=== PATIENT | male | born 1945 | race Caucasian/White ===

== ENCOUNTER → 2016-11-03 | Outpatient (CLI) | payer MEDICARE ==
--- NOTE | 2016-11-03 12:29 | ECHOS ---
DATE OF SERVICE: 11/03/16. AGE: 70Y SEX: M HT: 69" WT: 225lbs. Protocol Fer: Others: X Stage: II Dur. of Exercise: 5:18 *Heart Rate Blood Pressure *Rest: 68 Rest: 156/96 * *Max. Achieved: 157 Maximum BP: 166/101 85% PMHR: 127 100% PMHR: 149 *METS: 2.6 INDICATIONS: Abnormal EKG. MEDICATIONS: REFERRING PHYSICIAN: Dr. Alejandro. STRESS DATA: 68, pressure is 156/96 minutes millimeters mercury. Baseline EKG showed sinus mechanism with nonspecific changes. The patient exercised on the treadmill according to Fer protocol for a total of 5 minutes and 18 seconds achieved ( ) Max heart rate was 157, which is about 100% of maximum predicted heart rate. Maximum blood pressure was 166/101 millimeters mercury. Clinically, the patient developed some shortness of breath in response to exercise. The EKG showed about [address] changes, seems to be diffuse. Echocardiogram images: On echocardiogram images from parasternal long axis view, parasternal short axis, two chamber view ( ) baseline images, at the peak of the heart rate, as well as on recovery and the echocardiogram images showed wall motion abnormalities in the basal inferior wall. Likely consistent with ischemia. CONCLUSION: 1. Poor exercise capacity. 2. Mild EKG changes in response to exercise. 3. Abnormal echocardiogram in response to exercise with basal inferior wall hypokinesia likely consistent with ischemia. Please note that Definity was used in view of the poor in view of the poorly endocardium.
== END | disposition home or self-care (01) ==
LOC: RADNMMAIN 09:46
PROVIDERS: ATTEND Internal Medicine
DX: I51.89 Other ill-defined heart diseases (principal); R94.31 Abnormal electrocardiogram [ECG] [EKG]
CPT/HCPCS: 93017; C8928; Q9957; 93350

== ENCOUNTER → 2016-11-27 | Outpatient (CLI) | payer MEDICARE ==
[2016-11-27 15:50] LABS: CH 32.1; CHCM 33.9; HCT 46.5 % (39.0-53.0); HDW 2.62; HGB 15.7 gm/dL (13.0-17.5); MCH 32.1 pg (25.0-35.0); MCHC 33.7 g/dL (31.0-37.0); MCV 95.3 fL (80.0-100.0); Mean Platelet Volume 8.6; RBC 4.88 m/uL (4.30-5.90); RDW 13.7 % (11.5-15.5); WBC 7.3 k/uL (3.8-10.6)
[2016-11-27 21:08] LABS: Anion Gap 10 mmol/L; Blood Urea Nitrogen 16 mg/dL (9-20); Carbon Dioxide 27 mmol/L (22-30); Chloride 103 mmol/L (98-107); Non-African American GFR(MDRD) >60 (>60 ml/min/1.73 sqM); Potassium 4.4 mmol/L (3.5-5.1); Sodium 140 mmol/L (137-145)
== END | disposition home or self-care (01) ==
LOC: LABPAT 14:44
PROVIDERS: ATTEND Internal Medicine Interventional Cardiology
DX: Z01.818 Encounter for other preprocedural examination (principal); R94.30 Abnormal result of cardiovascular function study, unspecified
CPT/HCPCS: 80051; 82565; 84520; 85027

== ENCOUNTER 2016-12-03 07:16 | Day surgery (SDC) | payer MEDICARE ==
[2016-11-27 15:33] VITALS: BMI 31.5
[~2016-12-03 07:16] MED LIST: ALPRAZolam 0.25 MG TAB PO PRN; ALPRAZolam 0.5 MG TAB PO PRN; ASPIRIN 325 MG TAB PO STA; ATORVASTATIN 80 MG TAB PO STA; NITROGLYCERIN SL TABS 0.4 MG TAB SUBLINGUAL PRN; SODIUM CHLORIDE 0.9% 1,000 ML in EMPTY BAG 1 BAG IV ONE
[2016-12-03 08:06] VITALS: RESP 18
[2016-12-03] MEDS ORDERED: MIDAZOLAM 2 MG/2 ML VIAL IVP ONE ×2 (08:36→08:41)
[2016-12-03] MEDS ORDERED: LIDOCAINE 2% INJ 20 MG/ML SQ ONE (08:38)
[2016-12-03] MEDS ORDERED: VERAPAMIL SYRINGE (5 MG/10 ML) INTRAARTER ONE ×2 (08:40→08:50)
[2016-12-03] MEDS ORDERED: HEPARIN SODIUM 1,000 UNIT/ML VIAL IV ONE (08:41)
[2016-12-03] MEDS ORDERED: IOHEXOL 350 MG/ML 100 ML BOTTLE INJ ONE (08:50)
[2016-12-03] MEDS ORDERED: RX INFO: IV CONTRAST WAS GIVEN 1 EACH MISC MISCELLANE PRN (08:53)
[2016-12-03] MEDS ORDERED: SODIUM CHLORIDE 0.9% 1,000 ML IV SCH (09:00)
--- NOTE | 2016-12-03 09:23 | CC ---
DATE OF SERVICE: 12/03/2016 PERFORMING PHYSICIAN: Tala Poe, Loan Adviser. PROCEDURE PERFORMED: 1. Selective right and left coronary angiogram. 2. Left heart catheterization. INDICATION: This is a pleasant 71-year-old gentleman who sees Dr. Alejandro who was found to have an abnormal EKG with evidence of prior myocardial infarction inferior lead. He underwent a stress test which showed inferior ischemia. Heart catheterization was recommended. APPROACH: Right radial artery. COMPLICATIONS: None. LEVEL OF SEDATION: Moderate with a sedation length of 30 minutes. PROCEDURE DESCRIPTION: After obtaining an informed consent, the patient was brought to the Cardiac Regulatory Compliance Coordinator. The right radial artery was cannulated using micropuncture technique. The micropuncture wire passed easily, then I placed a 6 Arabic sheath in the right radial artery. Subsequently, I gave the patient 2 mg of verapamil IA and 3000 units of heparin IV. Then I did selective right and left coronary angiogram using JR4 and JL 3.5 catheters. Heart catheterization was performed also with a JR4 catheter, which was flipped into the left ventricle. Then I did pullback. The procedure was completed without any complication. SELECTIVE CORONARY ANGIOGRAM: 1. The right coronary artery is a large-caliber vessel and it is a dominant vessel. The right coronary artery has mild disease only in the proximal portion in the range of 20% to 30%. Distally bifurcates into PDA and PLV branches; both are angiographically normal. In the midportion gives rise into small acute marginal branch. 2. The left main is angiographically normal. It bifurcates into the left circumflex in the left anterior descending artery. 3. The left circumflex is a large-caliber vessel and it is a nondominant vessel. The proximal left circumflex is angiographically normal, but the mid circ is angiographically normal and gives rise into a large OM branch, which bifurcates into 2 separate branches and both are angiographically normal. Then the circ continues as a small-caliber vessel in the AV groove. 4. Left anterior descending artery. The proximal left anterior descending artery appeared to have mild disease only. It gives rises into the first and second diagonal branches; both are angiographically normal. The mid LAD and distal LAD are angiographically normal. CONCLUSION: 1. Calcified right and left coronary system. 2. Mild disease involving the proximal right coronary artery. POSTPROCEDURE MANAGEMENT: 1. Maximize medical treatment. 2. Follow up with the patient.
[2016-12-03 10:55] VITALS: TEMP 98.4
[2016-12-03 14:52] VITALS: BP 130/75; PULSE 52
== END 2016-12-03 15:18 | disposition home or self-care (01) ==
LOC: CATHCVL 07:16
PROVIDERS: ATTEND Internal Medicine Interventional Cardiology
DX: I25.10 Atherosclerotic heart disease of native coronary artery without angina pectoris (principal); I10 Essential (primary) hypertension; Z87.891 Personal history of nicotine dependence; Z82.49 Family history of ischemic heart disease and other diseases of the circulatory system; I25.2 Old myocardial infarction; Z79.899 Other long term (current) drug therapy
CPT/HCPCS: 93454; 99152; C1894; J2001; J2250; Q9967; J1644

== ENCOUNTER 2018-08-20 10:10 | Inpatient (IN) | payer MEDICARE ==
--- NOTE | 2018-08-20 10:36 | ED ---
General Adult HPI - General Chief complaint: Abdominal Pain Stated complaint: male Source: patient Mode of arrival: ambulatory Limitations: no limitations - History of Present Illness Initial comments: Dictation was produced using [employer] dictation software. please excuse any grammatical, word or spelling errors. Chief Complaint: 72-year-old male past medical history of dyslipidemia and hypertension presents with dysuria. History of Present Illness: He is a 72-year-old male presents with chief complaint of dysuria. Patient states that since yesterday he has been having burning on urination. She does bother complaints at this time. Denies any nausea, vomiting. Patient has a history of pyelonephritis in the past. Patient otherwise feels well. Patient denies testicular pain or penile pain. Patient states he noted that his urine was more cloudy. The ROS documented in this emergency department record has been reviewed and confirmed by me. Those systems with pertinent positive or negative responses have been documented in the HPI. All other systems are other negative and/or noncontributory. - Related Data Home Medications Medication Instructions Recorded Confirmed Multivitamins, Thera [Multivitamin] 1 tab PO DAILY 11/27/16 08/20/18 Atorvastatin [Lipitor] 40 mg PO DAILY 08/20/18 08/20/18 Bisoprolol-Hctz 2.5-6.25 mg [Ziac 1 tab PO DAILY 08/20/18 08/20/18 2.5-6.25 MG] Ubidecarenone [Co Q-10] 100 mg PO DAILY 08/20/18 08/20/18 Allergies Allergy/AdvReac Type Severity Reaction Status Date / Time No Known Allergies Allergy Verified 08/20/18 10:36 Review of Systems ROS Statement: Those systems with pertinent positive or pertinent negative responses have been documented in the HPI. ROS Other: All systems not noted in ROS Statement are negative. Past Medical History Past Medical History: Hyperlipidemia, Hypertension History of Any Multi-Drug Resistant Organisms: None Reported Past Surgical History: No Surgical Hx Reported Past Psychological History: No Psychological Hx Reported Smoking Status: Never smoker Past Alcohol Use History: None Reported Past Drug Use History: None Reported General Exam - General Exam Comments Initial Comments: PHYSICAL EXAM: General Impression: Alert and oriented x3, not in acute distress HEENT: Normocephalic atraumatic, extra-ocular movements intact, pupils equal and reactive to light bilaterally, mucous membranes moist. Cardiovascular: Heart regular rate and rhythm, S1&S2 audible, no murmurs, rubs or gallops Chest: Lungs clear to auscultation bilaterally, no rhonchi, no wheeze, no rales Abdomen: Bowel sounds present, abdomen soft, non-tender, non-distended, no organomegaly Musculoskeletal: Pulses present and equal in all extremities, no peripheral edema Motor: Power 5/5 bilaterally, no focal deficits noted Neurological: CN II-XII grossly intact, no focal motor or sensory deficits noted Skin: Intact with no visualized rashes Psych: Normal affect and mood Limitations: no limitations Course Vital Signs 08/20/18 10:13 Temperature 98.6 F Pulse Rate 90 Respiratory 20 Rate Blood Pressure 158/81 O2 Sat by Pulse 99 Oximetry Medical Decision Making - Medical Decision Making ED course: 72-year-old man with chief complaint of dysuria. He has history of pyelonephritis and urinary tract infection. However this occurred several years ago. Vital signs upon arrival are within acceptable limits. Physical examination is benign.Laboratory evaluation obtained. Leukocytosis of 21.7, metabolic panel shows findings within acceptable limits. Urinalysis shows 108 white blood cells, many bacteria and positive nitrites. Discussed with patient that if he feels well we can treat him outpatient however with strict return precautions. Patient and patient's preferred to be admitted inpatient for IV antibiotics for presumed diagnosis of pyelonephritis. Patient is understandable and agreeable to plan. Patient given 1 g of Rocephin. To be admitted to medicine. Medicine requests ultrasound renals. - Lab Data Result diagrams: 08/20/18 10:45 08/20/18 10:45 Lab Results 08/20/18 08/20/18 08/20/18 Range/Units 10:45 10:45 10:45 WBC 21.7 H (3.8-10.6) k/uL RBC 4.70 (4.30-5.90) m/uL Hgb 15.2 (13.0-17.5) gm/dL Hct 43.8 (39.0-53.0) % MCV 93.2 (80.0-100.0) fL MCH 32.4 (25.0-35.0) pg MCHC 34.7 (31.0-37.0) g/dL RDW 13.3 (11.5-15.5) % Plt Count 151 (150-450) k/uL Neutrophils % 88 % Lymphocytes % 4 % Monocytes % 6 % Eosinophils % 0 % Basophils % 0 % Neutrophils # 19.1 H (1.3-7.7) k/uL Lymphocytes # 0.9 L (1.0-4.8) k/uL Monocytes # 1.3 H (0-1.0) k/uL Eosinophils # 0.1 (0-0.7) k/uL Basophils # 0.0 (0-0.2) k/uL Sodium 138 (137-145) mmol/L Potassium 3.9 (3.5-5.1) mmol/L Chloride 106 (98-107) mmol/L Carbon Dioxide 22 (22-30) mmol/L Anion Gap 10 mmol/L BUN 21 H (9-20) mg/dL Creatinine 0.99 (0.66-1.25) mg/dL Est GFR (CKD-EPI)AfAm 87 (>60 ml/min/1.73 sqM) Est GFR (CKD-EPI)NonAf 75 (>60 ml/min/1.73 sqM) Glucose 146 H (74-99) mg/dL Calcium 9.3 (8.4-10.2) mg/dL Total Bilirubin 1.9 H (0.2-1.3) mg/dL AST 34 (17-59) U/L ALT 45 (21-72) U/L Alkaline Phosphatase 67 (38-126) U/L Total Protein 7.2 (6.3-8.2) g/dL Albumin 4.1 (3.5-5.0) g/dL Urine Color Yellow Urine Appearance Turbid (Clear) Urine pH 5.5 (5.0-8.0) Ur Specific [place] 1.024 (1.001-1.035) Urine Protein Trace H (Negative) Urine Glucose (UA) Negative (Negative) Urine Ketones Negative (Negative) Urine Blood Negative (Negative) Urine Nitrite Positive (Negative) Urine Bilirubin Negative (Negative) Urine Urobilinogen <2.0 (<2.0) mg/dL Ur Leukocyte Esterase Large H (Negative) Urine WBC 108 H (0-5) /hpf Urine Bacteria Many H (None) /hpf Urine Mucus Moderate H (None) /hpf Disposition Clinical Impression: Sepsis, UTI (urinary tract infection) Disposition: ADMITTED IP TO THIS HOSP Condition: Fair Referrals: Marquis Alejandro MD [Primary Care Provider] - 1-2 days Decision Time: 12:24
[2018-08-20 11:12] LABS: Basophils % (A) 0 %; Eosinophils # (A) 0.1 k/uL (0-0.7); Eosinophils % (A) 0 %; HCT 43.8 % (39.0-53.0); HGB 15.2 gm/dL (13.0-17.5); Lymphocytes # (A) 0.9 k/uL (1.0-4.8); Lymphocytes % (A) 4 %; MCH 32.4 pg (25.0-35.0); MCHC 34.7 g/dL (31.0-37.0); MCV 93.2 fL (80.0-100.0); Monocytes # (A) 1.3 k/uL (0-1.0); Monocytes % (A) 6 %; Neutrophils # (A) 19.1 k/uL (1.3-7.7); Neutrophils % (A) 88 %; Platelet Count 151 k/uL (150-450); RDW 13.3 % (11.5-15.5); WBC 21.7 k/uL (3.8-10.6)
[2018-08-20 11:22] LABS: Appearance,Urine Turbid (Clear); Bacteria,Urine Many /hpf; Bilirubin,Urine Negative (Negative); Blood,Urine Negative (Negative); Color,Urine Yellow; Glucose,Urine (UA) Negative (Negative); Ketones,Urine Negative (Negative); Leukocyte Esterase,Urine Large (Negative); Mucus,Urine Moderate /hpf; Nitrite,Urine Positive (Negative); PH, Urine 5.5 (5.0-8.0); Protein,Urine Trace (Negative); Specific Gravity,Urine 1.024 (1.001-1.035); Urobilinogen,Urine <2.0 mg/dL (<2.0); WBC,Urine 108 /hpf (0-5)
[2018-08-20 11:28] LABS: Albumin 4.1 g/dL (3.5-5.0); Calcium 9.3 mg/dL (8.4-10.2); Potassium 3.9 mmol/L (3.5-5.1); Total Bilirubin 1.9 mg/dL (0.2-1.3); Total Protein 7.2 g/dL (6.3-8.2)
[2018-08-20] MEDS ORDERED: NALOXONE 0.4 MG/ML 1 ML VIAL IV PRN (12:24)
[2018-08-20] MEDS ORDERED: ACETAMINOPHEN TAB 325 MG TAB PO PRN (12:24)
[2018-08-20] MEDS: SODIUM CHLORIDE 0.9% 1,000 ML IV SCH (13:02)
--- NOTE | 2018-08-20 13:27 | US ---
EXAMINATION TYPE: US renals and bladder DATE OF EXAM: 08/20/2018 COMPARISON: CT dated 08/01/2016 CLINICAL HISTORY: Pain. Pt states UTI EXAM MEASUREMENTS: Right Kidney: 13.1 x 6.4 x 5.6 cm Left Kidney: 11.8 x 5.7 x 5.6 cm Right Kidney: Probable parapelvic cysts as seen on CT, largest 3.3 cm, hypoechoic lesion lower pole= 2.2 x 1.4 x 2.2 cm Left Kidney: Probable parapelvic cysts as seen on CT, largest= 2.8 cm Bladder: wnl Bilateral Jets seen: Only right jet visualized Vertical medullary differentiation is maintained. 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
--- NOTE | 2018-08-20 19:00 | P.HPIM ---
History of Present Illness H&P Date: 08/20/18 Chief Complaint: Chills, dysuria, 72-year-old gentleman patient of Dr. Alejandro .with known history of pyelonephritis , hypertension, BPH hyperlipidemia, CAD admitted to the hospital secondary to dysuria and chills for the past 3 days, patient denies any fever, no history of kidney stones the past. Patient denies any nausea, no recent trauma,. He was seen in emergency room and evaluated with the dysuria, urinalysis was positive, creatinine was 0.9, urine white count WBC of 108, patient has urinary frequency as well, WBC count is 21,000 on ER admission. Last urine infection was several years ago, no history of urinary manipulation in the past Review of Systems Constitutional: Reports as per HPI, Reports chills, Reports sweats, Denies anorexia, Denies chronic headaches, Denies chronic pain, Denies daytime sleepiness, Denies fatigue, Denies fever, Denies lethargy, Denies malaise, Denies night sweats, Denies poor appetite, Denies weakness, Denies weight gain, Denies weight loss Ears, nose, mouth and throat: Reports as per HPI, Denies ant. neck pain, Denies bleeding gums, Denies dental pain, Denies dysphagia, Denies epistaxis, Denies headache, Denies hoarseness, Denies mouth pain, Denies nasal congestion, Denies nasal discharge, Denies neck fullness/pressure, Denies neck lump, Denies nose pain, Denies odynophagia, Denies post-nasal drip, Denies sinus pain, Denies sinus pressure, Denies swelling in mouth, Denies swelling in throat, Denies sore throat, Denies vertigo, Denies voice changes Cardiovascular: Reports as per HPI, Denies chest pain, Denies claudication, Denies decreased exercise tolerance, Denies dyspnea on exertion, Denies edema, Denies high blood pressure, Denies irregular heart beat, Denies leg edema, Denies lightheadedness, Denies orthopnea, Denies palpitations, Denies paroxysmal nocturnal dyspnea, Denies phlebitis, Denies rapid heart beat, Denies shortness of breath, Denies syncope Respiratory: Reports as per HPI, Denies congestion, Denies cough, Denies cough with sputum, Denies dyspnea, Denies excessive sputum, Denies hemoptysis, Denies home oxygen, Denies pain, Denies pain on inspiration, Denies pleurisy, Denies respiratory infections, Denies sleep apnea, Denies snoring, Denies wheezing Gastrointestinal: Reports as per HPI, Reports abdominal pain, Denies belching, Denies bloating, Denies BRBPR, Denies change in bowel habits, Denies coffee ground emesis, Denies constipation, Denies diarrhea, Denies dyspepsia, Denies early satiety, Denies excessive gas, Denies heartburn, Denies hematemesis, Denies hematochezia, Denies indigestion, Denies jaundice, Denies lactose intolerance, Denies loss of appetite, Denies melena, Denies nausea, Denies vomiting Genitourinary: Reports as per HPI, Reports dysuria, Reports urinary hesitancy, Denies decreased libido, Denies difficulties fathering child, Denies discharge, Denies erectile dysfunction, Denies flank pain, Denies genital pain, Denies genital sores, Denies hematuria, Denies impotence, Denies incontinence, Denies kidney stones, Denies nocturia, Denies polyuria, Denies testicular lump, Denies testicular pain, Denies urinary frequency, Denies urinary retention Musculoskeletal: Reports as per HPI, Denies arm numbness/tingling, Denies atrophy, Denies fractures, Denies frequent falls, Denies gait dysfunction, Denies hot joints, Denies leg numbness/tingling, Denies limitation of motion, Denies loss of height, Denies low back pain, Denies morning stiffness, Denies muscle cramps, Denies muscle weakness, Denies myalgias, Denies neck pain, Denies neck stiffness, Denies prior amputations, Denies redness of joints, Denies shooting arm pain, Denies shooting leg pain Integumentary: Reports as per HPI, Denies acne, Denies boils, Denies brittle nails, Denies change in hair/nails, Denies color changes, Denies darkening of skin, Denies depigmentation, Denies dryness, Denies foot/leg ulcers, Denies growths, Denies hirsutism, Denies lesions, Denies onychomycosis, Denies pruritus , Denies rash, Denies sores, Denies striae, Denies unusual bruising, Denies wounds Neurological: Reports as per HPI, Denies aphasia, Denies ataxia, Denies balance difficulties, Denies burning pain, Denies change in mentation, Denies change in smell/taste, Denies change in speech, Denies confusion, Denies convulsions, Denies double vision, Denies gait dysfunction, Denies head injury, Denies headaches, Denies hearing difficulties, Denies lack of coordination, Denies loss of vision, Denies memory loss, Denies migraines, Denies motor disturbance, Denies numbness, Denies paralysis, Denies paresthesias, Denies seizures, Denies sensory deficit, Denies spasticity, Denies syncope, Denies tic, Denies tingling , Denies transient paralysis, Denies tremors, Denies vertigo, Denies weakness, Denies visual changes Psychiatric: Reports as per HPI, Denies anhedonia, Denies anxiety, Denies anxiety attacks, Denies change in appetite, Denies change in libido, Denies change in sleep habits, Denies confusion, Denies depression, Denies difficulty concentrating, Denies disorientation, Denies hallucinations, Denies hopelessness , Denies hypersomnia, Denies insomnia, Denies irritability, Denies memory loss, Denies mood swings, Denies paranoia, Denies sadness/tearfulness, Denies sleep disturbances, Denies suicidal ideation Endocrine: Reports as per HPI, Denies cold intolerance, Denies deepening of the voice, Denies excessive sweating, Denies excessive thirst, Denies fatigue, Denies flushing, Denies heat intolerance, Denies high blood sugars, Denies increase in ring/shoe/hat size, Denies low blood sugars, Denies nocturia, Denies palpitations, Denies polydipsia, Denies polyphagia, Denies polyuria, Denies proptosis, Denies recent glucocorticoid use, Denies thyroid mass, Denies weight change Hematologic/Lymphatic: Reports as per HPI Allergic/Immunologic: Reports as per HPI Past Medical History Past Medical History: GERD/Reflux, Hyperlipidemia, Hypertension, Myocardial Infarction ([place]), Sleep Apnea/CPAP/BIPAP Additional Past Medical History / Comment(s): PUD, Hpylori, polynephritis, 2017 EKG showed old OH, 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 Past Anesthesia/Blood Transfusion Reactions: No Reported Reaction Smoking Status: Former smoker - Past Family History Father Family Medical History: Asthma, Renal Disease Additional Family Medical History / Comment(s): Father at the age of 93 yrs from renal failure. He had multiple hernias. Mother Family Medical History: Cancer (Breast cancer), Coronary Artery Disease (CAD) Additional Family Medical History / Comment(s): Mother had breast and cervical cancer. Sister(s) Family Medical History: Cancer (Breast) Additional Family Medical History / Comment(s): Sister recently from metastatic breast cancer at the age of 64 yrs. Brother(s) Family Medical History: Coronary Artery Disease (CAD) Medications and Allergies Home Medications Medication Instructions Recorded Confirmed Type Multivitamins, Thera [Multivitamin] 1 tab PO DAILY 11/27/16 08/20/18 History Atorvastatin [Lipitor] 40 mg PO DAILY 08/20/18 08/20/18 History Bisoprolol-Hctz 2.5-6.25 mg [Ziac 1 tab PO DAILY 08/20/18 08/20/18 History 2.5-6.25 MG] Ubidecarenone [Co Q-10] 100 mg PO DAILY 08/20/18 08/20/18 History Allergies Allergy/AdvReac Type Severity Reaction Status Date / Time No Known Allergies Allergy Verified 08/20/18 10:36 Physical Exam Vitals: Vital Signs Temp Pulse Pulse Resp BP BP Pulse Ox 08/20/18 13:49 98.7 F 93 16 165/82 94 L 08/20/18 13:03 99.5 F 89 18 148/78 94 L 08/20/18 10:13 98.6 F 90 20 158/81 99 Intake and Output 08/20/18 08/20/18 08/20/18 06:59 14:59 22:59 Intake Total 90 Balance 90 Intake: Intake, IV Titration 90 Amount Sodium Chloride 0.9% 1, 40 000 ml @ 20 mls/hr IV . Q24H [facility] Rx#:[id number] cefTRIAXone 1,000 mg In 50 Sodium Chloride 0.9% 50 ml @ 100 mls/hr IVPB ONCE STA Rx#:[id number] Other: Voiding Method Toilet # Voids 1 Weight 111.13 kg - Constitutional General appearance: no average body habitus, cooperative, no disheveled, no mild distress, no morbidly obese, no acute distress, no obese, no severe distress, no thin - EENT Eyes: no abnormal pupil, no anicteric sclerae, no disc margins sharp, no edentulous, EOMI, no PERRLA, fundus normal, no photophobia, dentition normal, no poor dentition, no ptosis, no scleral icterus, normal appearance ENT: no hard of hearing, hearing grossly normal, NA/AT, normal oropharynx, no other, no pharyngeal erythema, no thrush, no tonsillar exudates, no tonsillar swelling - Neck Neck: normal ROM - Respiratory Respiratory: bilateral: CTA, negative: diminished, dullness, rales, rhonchi, wheezing, prolonged expiration - Cardiovascular Rhythm: regular Heart sounds: normal: S1, S2 Abnormal Heart Sounds: no systolic murmur, no diastolic murmur, no rub, no S3 Gallop, no S4 Gallop, no click, no other - Gastrointestinal General gastrointestinal: no absent bowel sounds, no decreased bowel sounds, no distended, no hepatomegaly, no hyperactive bowel sounds, normal bowel sounds, no organomegaly, no rigid, no scaphoid, soft, no splenomegaly, no tenderness, no umbilical hernia, no ventral hernia - Integumentary Integumentary: normal, normal turgor - Neurologic Neurologic: CNII-XII intact - Musculoskeletal Musculoskeletal: gait normal, strength equal bilaterally - Psychiatric Psychiatric: A&O x's 3, appropriate affect, intact judgment & insight Results CBC & Chem 7: 08/20/18 10:45 08/20/18 10:45 Labs: Abnormal Lab Results - Last 24 Hours (Table) 08/20/18 08/20/18 08/20/18 Range/Units 10:45 10:45 10:45 WBC 21.7 H (3.8-10.6) k/uL Neutrophils # 19.1 H (1.3-7.7) k/uL Lymphocytes # 0.9 L (1.0-4.8) k/uL Monocytes # 1.3 H (0-1.0) k/uL BUN 21 H (9-20) mg/dL Glucose 146 H (74-99) mg/dL Total Bilirubin 1.9 H (0.2-1.3) mg/dL Urine Protein Trace H (Negative) Ur Leukocyte Esterase Large H (Negative) Urine WBC 108 H (0-5) /hpf Urine Bacteria Many H (None) /hpf Urine Mucus Moderate H (None) /hpf Microbiology - Last 24 Hours (Table) 08/20/18 10:45 Urine Culture - Preliminary Urine,Voided Laboratory Results WBC 21.7 k/uL (3.8-10.6) H 08/20/18 10:45 RBC 4.70 m/uL (4.30-5.90) 08/20/18 10:45 Hgb 15.2 gm/dL (13.0-17.5) 08/20/18 10:45 Hct 43.8 % (39.0-53.0) 08/20/18 10:45 MCV 93.2 fL (80.0-100.0) 08/20/18 10:45 MCH 32.4 pg (25.0-35.0) 08/20/18 10:45 MCHC 34.7 g/dL (31.0-37.0) 08/20/18 10:45 RDW 13.3 % (11.5-15.5) 08/20/18 10:45 Plt Count 151 k/uL (150-450) 08/20/18 10:45 Neutrophils % 88 % 08/20/18 10:45 Lymphocytes % 4 % 08/20/18 10:45 Monocytes % 6 % 08/20/18 10:45 Eosinophils % 0 % 08/20/18 10:45 Basophils % 0 % 08/20/18 10:45 Neutrophils # 19.1 k/uL (1.3-7.7) H 08/20/18 10:45 Lymphocytes # 0.9 k/uL (1.0-4.8) L 08/20/18 10:45 Monocytes # 1.3 k/uL (0-1.0) H 08/20/18 10:45 Eosinophils # 0.1 k/uL (0-0.7) 08/20/18 10:45 Basophils # 0.0 k/uL (0-0.2) 08/20/18 10:45 Sodium 138 mmol/L (137-145) 08/20/18 10:45 Potassium 3.9 mmol/L (3.5-5.1) 08/20/18 10:45 Chloride 106 mmol/L (98-107) 08/20/18 10:45 Carbon Dioxide 22 mmol/L (22-30) 08/20/18 10:45 Anion Gap 10 mmol/L 08/20/18 10:45 BUN 21 mg/dL (9-20) H 08/20/18 10:45 Creatinine 0.99 mg/dL (0.66-1.25) 08/20/18 10:45 Est GFR (CKD-EPI)AfAm 87 (>60 ml/min/1.73 sqM) 08/20/18 10:45 Est GFR (CKD-EPI)NonAf 75 (>60 ml/min/1.73 sqM) 08/20/18 10:45 Glucose 146 mg/dL (74-99) H 08/20/18 10:45 Calcium 9.3 mg/dL (8.4-10.2) 08/20/18 10:45 Total Bilirubin 1.9 mg/dL (0.2-1.3) H 08/20/18 10:45 AST 34 U/L (17-59) 08/20/18 10:45 ALT 45 U/L (21-72) 08/20/18 10:45 Alkaline Phosphatase 67 U/L (38-126) 08/20/18 10:45 Total Protein 7.2 g/dL (6.3-8.2) 08/20/18 10:45 Albumin 4.1 g/dL (3.5-5.0) 08/20/18 10:45 Urine Color Yellow 08/20/18 10:45 Urine Appearance Turbid (Clear) 08/20/18 10:45 Urine pH 5.5 (5.0-8.0) 08/20/18 10:45 Ur Specific [place] 1.024 (1.001-1.035) 08/20/18 10:45 Urine Protein Trace (Negative) H 08/20/18 10:45 Urine Glucose (UA) Negative (Negative) 08/20/18 10:45 Urine Ketones Negative (Negative) 08/20/18 10:45 Urine Blood Negative (Negative) 08/20/18 10:45 Urine Nitrite Positive (Negative) 08/20/18 10:45 Urine Bilirubin Negative (Negative) 08/20/18 10:45 Urine Urobilinogen <2.0 mg/dL (<2.0) 08/20/18 10:45 Ur Leukocyte Esterase Large (Negative) H 08/20/18 10:45 Urine WBC 108 /hpf (0-5) H 08/20/18 10:45 Urine Bacteria Many /hpf (None) H 08/20/18 10:45 Urine Mucus Moderate /hpf (None) H 08/20/18 10:45 Thrombosis Risk Factor Assmnt - DVT/VTE Prophylaxis DVT/VTE Prophylaxis: Mechanical Prophylaxis ordered, Low risk, early ambulation encouraged - Choose All That Apply Each Factor Represents 1 point: Sepsis (< 1month) Each Risk Factor Represents 2 Points: Age 61-74 years Thrombosis Risk Factor Assessment Total Risk Factor Score: 3 Thrombosis Risk Factor Assessment Level: Moderate Risk Assessment and Plan Plan: 1. Leukemoid reaction, secondary to sepsis with suspected pyelonephritis, symptoms included urine frequency urine difficulty and dysuria, patient would be started and IV Rocephin, pancultures, kidney ultrasound to be done to evaluate for hydronephrosis as well as nephrolithiasis. IV for hydration 2.BPH with lowering tract symptomatology, he will try to look for and any recent PSA performed in the past, 3. Hyperlipidemia on statin 4. History of CAD in the past, with inferior transmural infarct noted in 2017, cardiac catheter performed by Dr. Lu, no occlusive disease noted most likely related to plaque rupture patient is on Ziac 2.5 size 6.25 and Lipitor 5. DVT prophylaxis GI prophylaxis Expected length of stay 2 nights
[2018-08-20] MEDS: FAMOTIDINE 20 MG TAB PO SCH (21:11)
[2018-08-21] MEDS: FAMOTIDINE 20 MG TAB PO SCH ×2 (08:10→20:09)
[2018-08-21 08:55] LABS: Basophils % (A) 0 %; Eosinophils # (A) 0.1 k/uL (0-0.7); Eosinophils % (A) 1 %; HGB 13.6 gm/dL (13.0-17.5); Lymphocytes # (A) 1.1 k/uL (1.0-4.8); Lymphocytes % (A) 9 %; MCH 31.1 pg (25.0-35.0); MCHC 32.4 g/dL (31.0-37.0); MCV 96.2 fL (80.0-100.0); Mean Platelet Volume 7.4; Monocytes # (A) 0.5 k/uL (0-1.0); Monocytes % (A) 5 %; Neutrophils % (A) 84 %; Platelet Count 145 k/uL (150-450); RBC 4.37 m/uL (4.30-5.90); RDW 13.4 % (11.5-15.5)
[2018-08-21] MEDS: SODIUM CHLORIDE 0.9% 1,000 ML IV SCH (15:37)
--- NOTE | 2018-08-21 16:30 | P.PN ---
Subjective Progress Note Date: 08/21/18 72-year-old gentleman patient of Dr. Alejandro .with known history of pyelonephritis , hypertension, BPH hyperlipidemia, CAD admitted to the hospital secondary to dysuria and chills for the past 3 days, patient denies any fever, no history of kidney stones the past. Patient denies any nausea, no recent trauma,. He was seen in emergency room and evaluated with the dysuria, urinalysis was positive, creatinine was 0.9, urine white count WBC of 108, patient has urinary frequency as well, WBC count is 21,000 on ER admission. Last urine infection was several years ago, no history of urinary manipulation in the past. 08/21: Patient is resting comfortably in bed without any complaints today. Patient states that he has been up frequently urinating but not having any burning or irritation. Patient denies any fever or pain. Renal ultrasounds results show Pelvic cyst are present bilaterally. Patient did have a fever yesterday evening but has been afebrile since then. WBC is 12 today. Review of systems: Constitutional: Denies fatigue, Denies chills, Denies fever Eyes: denies blurred vision, denies pain Ears, nose, mouth and throat: Denies headache, Denies sore throat Cardiovascular: Denies dyspnea on exertion, Denies chest pain, Denies lightheadedness, Denies shortness of breath, Denies syncope Respiratory: Denies cough, Denies cough with sputum, Denies dyspnea, Denies excessive sputum, Denies hemoptysis, Denies home oxygen, Denies wheezing Gastrointestinal: Denies abdominal pain, Denies diarrhea, Denies nausea, Denies vomiting Genitourinary: Reports frequency, denies hematuria Denies dysuria Musculoskeletal: Denies myalgias Integumentary: Denies pruritus, Denies rash Neurological: Denies numbness, Denies weakness Psychiatric: Denies anxiety, Denies depression Endocrine: Denies fatigue, Denies weight change Objective - Vital Signs Vital signs: Vital Signs Temp 99.6 F 08/21/18 15:00 Pulse 76 08/21/18 15:39 Resp 16 08/21/18 15:39 BP 152/76 08/21/18 15:00 Pulse Ox 95 08/21/18 15:00 Intake & Output 08/20/18 08/21/18 08/21/18 18:59 06:59 18:59 Intake Total 310 800 140 Balance 310 800 140 Weight 111.13 kg Intake: Intake, IV Titration 90 800 140 Amount Sodium Chloride 0.9% 1, 40 100 140 000 ml @ 20 mls/hr IV . Q24H [facility] Rx#:[id number] cefTRIAXone 1,000 mg In 50 700 Sodium Chloride 0.9% 50 ml @ 100 mls/hr IVPB ONCE STA Rx#:[id number] Oral 220 Other: Voiding Method Toilet Toilet # Voids 1 1 - Constitutional General appearance: Present: average body habitus, cooperative, no acute distress - EENT Eyes: Present: anicteric sclerae, EOMI, PERRLA ENT: Present: hearing grossly normal, normal oropharynx - Neck Neck: Present: normal ROM. Absent: lymphadenopathy, rigidity - Respiratory Respiratory: bilateral: CTA, negative: diminished, dullness, rales, rhonchi, wheezing - Cardiovascular Rhythm: regular Heart sounds: normal: S1, S2 Abnormal Heart Sounds: Absent: systolic murmur, diastolic murmur, rub, S3 Gallop , S4 Gallop, click, other - Gastrointestinal General gastrointestinal: Present: normal bowel sounds, soft. Absent: organomegaly, tenderness - Integumentary Integumentary: Present: normal, normal turgor - Neurologic Neurologic: Present: CNII-XII intact - Musculoskeletal Musculoskeletal: Present: gait normal, strength equal bilaterally - Psychiatric Psychiatric: Present: A&O x's 3, appropriate affect, intact judgment & insight - Labs CBC & Chem 7: 08/21/18 08:18 08/20/18 10:45 Labs: Abnormal Lab Results - Last 24 Hours (Table) 08/21/18 Range/Units 08:18 WBC 12.0 H (3.8-10.6) k/uL Plt Count 145 L (150-450) k/uL Neutrophils # 10.0 H (1.3-7.7) k/uL Microbiology - Last 24 Hours (Table) 08/20/18 12:10 Blood Culture - Preliminary Blood No Growth after 24 hours 08/20/18 10:45 Urine Culture - Preliminary Urine,Voided Gram Neg Bacilli Assessment and Plan Plan: 1. Urinary tract infection, continue IV hydration Rocephin 1 g kidney ultrasound shows parapelvic cysts bilaterally no pyelonephritis noted. 2.BPH with lowering tract symptomatology, he will try to look for and any recent PSA performed in the past, 3. Hyperlipidemia on statin 4. History of CAD in the past, with inferior transmural infarct noted in 2017, cardiac catheter performed by Dr. Lu, no occlusive disease noted most likely related to plaque rupture patient is on Ziac 2.5 size 6.25 and Lipitor 5. DVT prophylaxis GI prophylaxis Discharge plan: Home possibly tomorrow Expected length of stay 2 nights Impression and plan of care have been directed as dictated by the signing physician. Jenna William nurse practitioner acting as scribe for signing physician.
[2018-08-22] MEDS: FAMOTIDINE 20 MG TAB PO SCH (07:10)
[2018-08-22 07:14] VITALS: BP 160/90; RESP 16; TEMP 98.1
[2018-08-22 10:38] VITALS: PULSE 76
[2018-08-22] MEDS ORDERED: TAMSULOSIN 0.4 MG CAP.ER.24H PO STA (11:38)
--- NOTE | 2018-08-22 15:52 | P.DS ---
Providers Date of admission: 08/20/18 12:24 Attending physician: Zayra Marrero Primary care physician: Marquis Alejandro Hospital Course: 72-year-old gentleman patient of Dr. Alejandro .with known history of pyelonephritis , hypertension, BPH hyperlipidemia, CAD admitted to the hospital secondary to dysuria and chills for the past 3 days, patient denies any fever, no history of kidney stones the past. Patient denies any nausea, no recent trauma,. He was seen in emergency room and evaluated with the dysuria, urinalysis was positive, creatinine was 0.9, urine white count WBC of 108, patient has urinary frequency as well, WBC count is 21,000 on ER admission. Last urine infection was several years ago, no history of urinary manipulation in the past. 08/21: Patient is resting comfortably in bed without any complaints today. Patient states that he has been up frequently urinating but not having any burning or irritation. Patient denies any fever or pain. Renal ultrasounds results show Pelvic cyst are present bilaterally. Patient did have a fever yesterday evening but has been afebrile since then. WBC is 12 today. 08/22: Patient experienced a fever last night and had some urinary retention. Patient was given Tylenol and straight cath yielding 650 ML's. Discussed with patient if he has history of BPH which she denied however upon further questioning symptoms do relate to BPH. We will start Flomax at this time to help with symptoms. We will discharge patient home on antibiotics and on Flomax. Discharge diagnosis: 1. Urinary tract infection, 2.BPH with lowering tract symptomatology, 3. Hyperlipidemia on statin 4. History of CAD in the past, with inferior transmural infarct Disposition: Home with self-care CC Dr. Alejandro Impression and plan of care have been directed as dictated by the signing physician. Jenna William nurse practitioner acting as scribe for signing physician. Patient Condition at Discharge: Fair Plan - Discharge Summary Discharge Rx Participant: No New Discharge Prescriptions: New Acetaminophen Tab [Tylenol] 650 mg PO Q6HR PRN tab PRN Reason: Mild Pain Or Fever > 100.5 Cephalexin [Keflex] 500 mg PO Q8HR #36 cap Tamsulosin [Flomax] 0.4 mg PO DAILY #30 cap.er.24h Continue Multivitamins, Thera [Multivitamin (formulary)] 1 tab PO DAILY Ubidecarenone [Co Q-10] 100 mg PO DAILY Bisoprolol-Hctz 2.5-6.25 mg [Ziac 2.5-6.25 MG] 1 tab PO DAILY Atorvastatin [Lipitor] 40 mg PO DAILY Discharge Medication List Multivitamins, Thera [Multivitamin (formulary)] 1 tab PO DAILY 11/27/16 [History ] Atorvastatin [Lipitor] 40 mg PO DAILY 08/20/18 [History] Bisoprolol-Hctz 2.5-6.25 mg [Ziac 2.5-6.25 MG] 1 tab PO DAILY 08/20/18 [History] Ubidecarenone [Co Q-10] 100 mg PO DAILY 08/20/18 [History] Acetaminophen Tab [Tylenol] 650 mg PO Q6HR PRN tab 08/22/18 [Rx] Cephalexin [Keflex] 500 mg PO Q8HR #36 cap 08/22/18 [Rx] Tamsulosin [Flomax] 0.4 mg PO DAILY #30 cap.er.24h 08/22/18 [Rx] Follow up Appointment(s)/Referral(s): Marquis Alejandro MD [Primary Care Provider] - 1-2 days Patient Instructions/Handouts: Urinary Tract Infection in Men (DC)
--- NOTE | 2018-08-24 09:50 | CDI ---
Last Revision, August 2017 Documentation Clarification Form Date: 08/24/2018 9:36:31 AM From: Lien Del Toro Phone: If you have a question about this query, please contact Dolores Connelly Records Supervisor at [phone] between 8am and 5pm. Admit Date: 08/20/2018 12:24:00 PM Patient Name: Crow Laws Visit Number: [id number] Discharge Date:08/22/18 ATTENTION: The Clinical Documentation Specialists (CDI) and [facility] Coding Staff appreciate your assistance in clarifying documentation. Please respond to the clarification below the line at the bottom and electronically sign. The CDI & [facility] Coding staff will review the response and follow-up if needed. Please note: Queries are made part of the Legal Health Record. If you have any questions, please contact the author of this message via ITS. Jenna Cervantes, MAYELIN Documentation and location in ER notes and H and P is sepsis. Leukomoid reaction secondary to sepsis. Sepsis diagnosis not carried to [facility]. Please clarify if patient had sepsis. History/Risk Factors: Chills for three days, dysuria, fever WBC/Left Shift 21.7 Vitals signs on admission: 98.6 F later 101.2 and 101.7 F, 90 bpm, 20, 158/81, 99% RA Other Clinical Indicators: leukomoid reaction Treatment: IV Rocep In your professional opinion, please clarify if these findings signify one of the following conditions, whether the condition is POA, and cause, if known: Condition Sepsis ruled out Sepsis Severe Sepsis Septic Shock Other, please specify Unable to determine SIRS Criteria..2 or more of the following may indicate SIRS: Temperature < 96.8F (36C) or > 101.0F (38.3C) Heart Rate > 90 bpm Respiratory Rate > 20 breaths/min or PaCO2 < 32 mmHg White Blood Cell Count > 12,000 or < 4,000 cells/mm3 or > 10% bands Lactate >2.0 mmol/L (>4.0 is equivalent to septic shock) [facility]
== END 2018-08-22 14:30 | disposition home or self-care (01) | DRG 872 ==
LOC: EC 10:10 → 4SSUR 12:24
PROVIDERS: ADMIT Family Medicine; ATTEND Family Medicine
DX: A41.9 Sepsis, unspecified organism (principal); N39.0 Urinary tract infection, site not specified; E78.5 Hyperlipidemia, unspecified; G47.33 Obstructive sleep apnea (adult) (pediatric); I10 Essential (primary) hypertension; I25.10 Atherosclerotic heart disease of native coronary artery without angina pectoris; I25.2 Old myocardial infarction; K21.9 Gastro-esophageal reflux disease without esophagitis; Z80.3 Family history of malignant neoplasm of breast; Z82.49 Family history of ischemic heart disease and other diseases of the circulatory system; Z82.5 Family history of asthma and other chronic lower respiratory diseases; Z87.11 Personal history of peptic ulcer disease; Z87.891 Personal history of nicotine dependence; Z89.029 Acquired absence of unspecified finger(s); Z96.641 Presence of right artificial hip joint; N40.1 Benign prostatic hyperplasia with lower urinary tract symptoms; R33.8 Other retention of urine; Z87.440 Personal history of urinary (tract) infections; Z98.1 Arthrodesis status; Z84.1 Family history of disorders of kidney and ureter; R39.11 Hesitancy of micturition
CPT/HCPCS: 36415; 76770; 80053; 81001; 85025; 87040; 87077; 87086; 87186; 96365; 99285

== ENCOUNTER 2018-11-30 08:26 | Day surgery (SDC) | payer MEDICARE ==
[2018-11-25 14:59] VITALS: BMI 33.5
[~2018-11-30 08:26] MED LIST changes: -ALPRAZolam 0.25 MG TAB PO PRN; -ALPRAZolam 0.5 MG TAB PO PRN; -ASPIRIN 325 MG TAB PO STA; -ATORVASTATIN 80 MG TAB PO STA; +LACTATED RINGERS 1,000 ML IV SCH; +LIDOCAINE 1% 20 ML VIAL (10MG/ML) FOR IV START INTRADERMA PRN; -NITROGLYCERIN SL TABS 0.4 MG TAB SUBLINGUAL PRN; -SODIUM CHLORIDE 0.9% 1,000 ML in EMPTY BAG 1 BAG IV ONE
[2018-11-30 08:38] VITALS: TEMP 98.8
[2018-11-30] MEDS ORDERED: PROPOFOL 10 MG/ML 20 ML VIAL IV ONE (09:08)
--- NOTE | 2018-11-30 09:14 | P.GSHP ---
History of Present Illness H&P Date: 11/30/18 Chief Complaint: Screening colonoscopy This is a 73-year-old male who presents today for screening colonoscopy. Patient denies a significant GI complaints. 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 Past Anesthesia/Blood Transfusion Reactions: No Reported Reaction Smoking Status: Former smoker - Past Family History Mother Family Medical History: Cancer Sister(s) Family Medical History: Cancer Father Family Medical History: Asthma, Renal Disease Additional Family Medical History / Comment(s): Father at the age of 93 yrs from renal failure. He had multiple hernias. Brother(s) Family Medical History: Coronary Artery Disease (CAD) Medications and Allergies Home Medications Medication Instructions Recorded Confirmed Type Atorvastatin [Lipitor] 40 mg PO DAILY 08/20/18 11/30/18 History Bisoprolol-Hctz 2.5-6.25 mg [Ziac 1 tab PO DAILY 08/20/18 11/30/18 History 2.5-6.25 MG] Allergies Allergy/AdvReac Type Severity Reaction Status Date / Time No Known Allergies Allergy Verified 11/30/18 08:33 Surgical - Exam Vital Signs Temp Pulse Resp BP Pulse Ox 98.8 F 66 16 175/81 93 L 11/30/18 08:37 11/30/18 08:37 11/30/18 08:37 11/30/18 08:37 11/30/18 08:37 - General well developed, well nourished, no distress - Eyes PERRL - ENT normal pinna - Neck no masses - Respiratory normal expansion - Cardiovascular Rhythm: regular - Abdomen Abdomen: soft, non tender Assessment and Plan Assessment: We'll perform screening colonoscopy.
--- NOTE | 2018-11-30 09:28 | P.OP ---
Date of Procedure: 11/30/18 Preoperative Diagnosis: Screening colonoscopy Postoperative Diagnosis: Diverticulosis Procedure(s) Performed: Colonoscopy Anesthesia: MAC Surgeon: Ruperto Lowe Pathology: none sent Condition: stable Disposition: PACU Description of Procedure: The patient's placed on the endoscopy table in the lateral position. He received IV sedation. Digital rectal exam was performed which revealed no abnormalities. Flexible colonoscope was then placed patient anus and passed throughout the entire colon. The ileocecal valve was visualized. The cecum, ascending and transverse colon appeared normal. In the descending; there is mild diverticular changes. The scope was then brought back the rectum this appeared normal. Scope was withdrawn for patient.
[2018-11-30 09:50] VITALS: BP 138/70; PULSE 58; RESP 18
== END 2018-11-30 10:06 | disposition home or self-care (01) ==
LOC: ORWHC2ENDO 08:26
PROVIDERS: ATTEND Surgery
DX: Z12.11 Encounter for screening for malignant neoplasm of colon (principal); D12.8 Benign neoplasm of rectum; K57.30 Diverticulosis of large intestine without perforation or abscess without bleeding; E78.5 Hyperlipidemia, unspecified; G47.33 Obstructive sleep apnea (adult) (pediatric); I10 Essential (primary) hypertension; I25.2 Old myocardial infarction; K21.9 Gastro-esophageal reflux disease without esophagitis; Z82.49 Family history of ischemic heart disease and other diseases of the circulatory system; Z87.11 Personal history of peptic ulcer disease; Z87.891 Personal history of nicotine dependence; Z89.029 Acquired absence of unspecified finger(s); Z79.899 Other long term (current) drug therapy; Z96.641 Presence of right artificial hip joint
CPT/HCPCS: 88305; 45385; J2704

== ENCOUNTER → 2019-11-16 | Outpatient (CLI) | payer MEDICARE | END | disposition home or self-care (01) | LOC: LABPAT 12:39 | PROVIDERS: ATTEND Otolaryngology | DX: Z01.818 Encounter for other preprocedural examination (principal); I10 Essential (primary) hypertension | CPT/HCPCS: 93005 ==

== ENCOUNTER → 2020-11-09 | Outpatient (CLI) | payer MEDICARE ==
--- NOTE | 2020-11-09 08:41 | US ---
EXAMINATION TYPE: US liver DATE OF EXAM: 11/09/2020 COMPARISON: NONE CLINICAL HISTORY: K76.0 Fatty Liver Disease. exam limited due to body habitus EXAM MEASUREMENTS: Liver Length: 15.3 cm Gallbladder Wall: .3 cm CBD: .3 cm Right Kidney: 12.9 x 5.2 x 4.7 cm Pancreas: Obscured by bowel gas Liver: Increased attenuation Gallbladder: Stone visualized Evidence for sonographic Canales's sign: No CBD: wnl Right Kidney: No hydronephrosis or masses seen IMPRESSION: 1. Cholelithiasis. 2. Fatty liver.
== END | disposition home or self-care (01) ==
LOC: RADUSWWP 07:17
PROVIDERS: ATTEND Internal Medicine
DX: K80.20 Calculus of gallbladder without cholecystitis without obstruction (principal); K76.0 Fatty (change of) liver, not elsewhere classified
CPT/HCPCS: 76705

== ENCOUNTER → 2021-01-02 | Outpatient (CLI) | payer MEDICARE ==
--- NOTE | 2021-01-02 09:30 | NM ---
Nuclear medicine hepatobiliary scan. HISTORY: Pain. DOSAGE: The patient received 8 ounces of ensure plus and 5 mCi of Technetium 99m Choletec. FINDINGS: There is normal hepatic extraction. Photopenic defect involving the left lobe of liver. Th e gallbladder is seen by 40 minutes. There is biliary to bowel clearance by 20 minutes. Ejection fr action is 15%. IMPRESSION: 1. Abnormal ejection fraction of 15%. Correlate for biliary dyskinesia. 2. Photopenic defect involving the dome of the liver with no corresponding ultrasound abnormality cou ld be artifactual correlate
== END | disposition home or self-care (01) ==
LOC: RADNMMAIN 06:34
PROVIDERS: ATTEND Internal Medicine
DX: K82.8 Other specified diseases of gallbladder (principal)
CPT/HCPCS: 78226; A9537

== ENCOUNTER 2021-01-23 08:27 | Day surgery (SDC) | payer MEDICARE ==
[2021-01-21 14:04] VITALS: BMI 34.4
[~2021-01-23 08:27] MED LIST changes: +ACETAMINOPHEN TAB 500 MG TAB PO PRN; +DEXAMETHASONE SOD PHOSPHATE 4 MG/ML 1 ML VIAL IV ONE; +HEPARIN SODIUM,PORCINE/PF 5,000 UNIT/0.5 ML SYRINGE SQ PRN; +HYDROmorphone 0.5 MG/0.5 ML SYRINGE IVP PRN; +LIDOCAINE 1% (10MG/ML) FOR IV START INTRADERMA PRN; -LIDOCAINE 1% 20 ML VIAL (10MG/ML) FOR IV START INTRADERMA PRN; +MIDAZOLAM 2 MG/2 ML VIAL IV PRN
[2021-01-23] MEDS ORDERED: ONDANSETRON 4 MG/2 ML VIAL ONE (08:52)
[2021-01-23] MEDS ORDERED: BUPIVACAINE (PF) 0.5% 30 ML VIAL SQ ONE ×2 (10:37→12:00)
--- NOTE | 2021-01-23 10:37 | P.ANPRN ---
Procedure Note - Anesthesia - Nerve Block Performed Bilateral Transversus Abdominis Single Time Out Performed: Yes Date of Procedure: 01/23/21 Procedure Start Time: 09:55 Procedure Stop Time: 10:00 Location of Patient: PreOp Indication: Acute Post-Operative Pain, Dx/Pain Location, Requested by Surgeon Sedation Type: Sedate with meaningful contact maintained Preparation: Sterile Prep Position: Supine Catheter: None Needle Types: Pajunk Needle Gauge: 21 Ultrasound used to visualize needle placement: Yes Ultrasound used to observe medication spread: Yes Injectate: 0.5% Ropivacaine (see comment for volume) (30cc) Blood Aspirated: No Resistance on Injection: Normal Image Stored and Saved: Yes Events: Uneventful and Well Tolerated
--- NOTE | 2021-01-23 10:58 | P.GSHP ---
History of Present Illness H&P Date: 01/23/21 Chief Complaint: Right upper quadrant pain This a 75-year-old male who presents today for laparoscopic cholecystectomy. Patient's complaints were obtained. His recent HIDA scan shows a diminished gallbladder ejection fraction consistent with chronic cholecystitis Past Medical History Past Medical History: GERD/Reflux, Hearing Disorder / Deafness, Hyperlipidemia, Hypertension, Myocardial Infarction ([place]), Sleep Apnea/CPAP/BIPAP Additional Past Medical History / Comment(s): Hx H Pylori, hx kidney infection with hospitalization, no CPAP use. Bilateral hearing aid use. Last Myocardial Infarction Date:: unknown-found on EKG History of Any Multi-Drug Resistant Organisms: None Reported Past Surgical History: Heart Catheterization, Joint Replacement, Orthopedic Surgery Additional Past Surgical History / Comment(s): Total right hip arthroplasty, multiple left hand surgeries-fingers amputated in work accident, left ankle surgery, cervical fusion, left shoulder spurs removed, left arm fatty tumor removed, EGD, colonoscopies, bilateral blepharoplasties(eyelid surgery), bilateral cataract remaval with lens implants. Past Anesthesia/Blood Transfusion Reactions: No Reported Reaction Past Psychological History: No Psychological Hx Reported Additional Psychological History / Comment(s): Pt resides with his spouse. He is independent. Smoking Status: Former smoker Past Alcohol Use History: None Reported Additional Past Alcohol Use History / Comment(s): Pt smoked for a year or two as a teen. Past Drug Use History: None Reported - Past Family History Mother Family Medical History: Cancer Sister(s) Family Medical History: Cancer Father Family Medical History: Asthma, Renal Disease Additional Family Medical History / Comment(s): Father at the age of 93 yrs from renal failure. He had multiple hernias. Brother(s) Family Medical History: Coronary Artery Disease (CAD) Medications and Allergies Home Medications Medication Instructions Recorded Confirmed Type Atorvastatin [Lipitor] 40 mg PO QAM 08/20/18 01/21/21 History Bisoprolol-Hctz 2.5-6.25 mg [Ziac 1 tab PO QAM 08/20/18 01/21/21 History 2.5-6.25 MG] Allergies Allergy/AdvReac Type Severity Reaction Status Date / Time No Known Allergies Allergy Verified 01/21/21 14:05 Surgical - Exam Vital Signs Temp Pulse Resp BP Pulse Ox 97.5 F L 70 20 156/80 100 04/28/21 08:55 01/23/21 08:55 01/23/21 08:55 01/23/21 08:55 01/23/21 08:55 - General well developed, well nourished, no distress - Eyes PERRL - ENT normal pinna - Neck no masses - Respiratory normal expansion - Cardiovascular Rhythm: regular - Abdomen Abdomen: soft, non tender Assessment and Plan Assessment: Chronic cholecystitis. We'll perform laparoscopic cholecystectomy
[2021-01-23] MEDS ORDERED: fentaNYL (PF) 50 MCG/ML 2 ML AMP ONE (11:38)
[2021-01-23] MEDS ORDERED: GLYCOPYRROLATE 0.2 MG/ML 2 ML VIAL ONE (11:38)
[2021-01-23] MEDS ORDERED: NEOSTIGMINE 1 MG/ML 10 ML VIAL ONE (11:38)
[2021-01-23] MEDS ORDERED: ROCURONIUM 10 MG/ML (5 ML VIAL) IV ONE (11:38)
[2021-01-23] MEDS ORDERED: LIDOCAINE 1% INJ 10MG/ML (20 ML MDV) ONE (11:38)
[2021-01-23] MEDS ORDERED: ROPIVACAINE 5 MG/ML 30 ML VIAL ONE (11:38)
[2021-01-23] MEDS ORDERED: MIDAZOLAM 2 MG/2 ML VIAL ONE (11:38)
[2021-01-23] MEDS ORDERED: SUCCINYLCHOLINE CHLORIDE 100 MG/5 ML SYR IV ONE (11:38)
[2021-01-23] MEDS ORDERED: PROPOFOL 10 MG/ML 20 ML VIAL IV ONE (11:38)
[2021-01-23] MEDS ORDERED: LACTATED RINGERS 1,000 ML IV ONE (12:21)
--- NOTE | 2021-01-23 12:22 | P.OP ---
Date of Procedure: 01/23/21 Preoperative Diagnosis: Cholecystitis Cholelithiasis Postoperative Diagnosis: Cholecystitis Cholelithiasis Procedure(s) Performed: Laparoscopic cholecystectomy Anesthesia: JOHNATHON Surgeon: Ruperto Lowe Estimated Blood Loss (ml): 5 Pathology: other (All bladder) Condition: stable Disposition: PACU Description of Procedure: The patient was placed on the operating table. The patient received a general endotracheal tube anesthesia. The patients abdomen was prepped and draped in the usual sterile fashion. Through an infraumbilical stab incision, the fascia of the anterior abdominal wall was grasped with a pair of Kochers and then the Veress needle was placed in the peritoneal cavity. Position of the Veress needle was confirmed with positive drop test. The abdomen was then insufflated. After adequate insufflation, the 10 mm trocar was placed in the peritoneal cavity. Following this the laparoscope was placed in the peritoneal cavity. The patient was placed in the head-up, right side up position and then a 5 mm trocar was placed in the right lateral and right subcostal position under direct visualization. A 8 mm trocar was placed in the epigastric position. The gallbladder was grasped in the fundus and infundibulum. Traction on the gallbladder was placed in the lateral and the cephalad positions. The triangle of Calot was visualized.. The cystic duct was bluntly dissected until the union of the cystic duct and common bile duct wa s seen. A critical view of safety was achieved. The cystic duct was then divided and sealed with the Harmonic scissors. A PDS Endoloop was then placed throughout the cystic duct stump. The cystic artery divided and sealed with the Harmonic scissors. The gallbladder was then removed from the liver bed using Harmonic scissors. The gallbladder was then extracted through the epigastric port site. Operative field was checked for any bleeding spots and Harmonic scissors was used to coagulate the liver bed. The abdomen was irrigated. The trocars were removed. The skin was closed using interrupted 3-0 Vicryl suture. Dermabond dressing were applied. The patient tolerated the procedure well.
[2021-01-23 12:32] VITALS: RESP 16; TEMP 97
[2021-01-23 14:07] VITALS: BP 160/75; PULSE 74
== END 2021-01-23 15:06 | disposition home or self-care (01) ==
LOC: OR 08:27
PROVIDERS: ATTEND Surgery
DX: K80.10 Calculus of gallbladder with chronic cholecystitis without obstruction (principal); K21.9 Gastro-esophageal reflux disease without esophagitis; H91.90 Unspecified hearing loss, unspecified ear; E78.5 Hyperlipidemia, unspecified; I10 Essential (primary) hypertension; G47.30 Sleep apnea, unspecified; I25.2 Old myocardial infarction; Z86.19 Personal history of other infectious and parasitic diseases; Z87.448 Personal history of other diseases of urinary system; Z96.641 Presence of right artificial hip joint; Z98.42 Cataract extraction status, left eye; Z98.41 Cataract extraction status, right eye; Z96.1 Presence of intraocular lens; Z98.890 Other specified postprocedural states; Z87.891 Personal history of nicotine dependence; Z80.9 Family history of malignant neoplasm, unspecified; Z82.5 Family history of asthma and other chronic lower respiratory diseases; Z84.1 Family history of disorders of kidney and ureter; Z82.49 Family history of ischemic heart disease and other diseases of the circulatory system; Z79.899 Other long term (current) drug therapy
CPT/HCPCS: 64488; 88304; 47562; J2250; J1100; J2710; J0690; J2405; J2001; J3010; J2795; J0330; J2704; J1644

== ENCOUNTER 2021-01-24 09:54 | Emergency (ER) | payer MEDICARE ==
[2021-01-24 10:10] VITALS: BP 170/77; PULSE 77; RESP 18; TEMP 97.8
--- NOTE | 2021-01-24 10:57 | ED ---
General Adult HPI - General Chief complaint: Urogenital Stated complaint: post op-cannot urinate Time Seen by Provider: 01/24/21 10:11 Source: patient, family, RN notes reviewed Mode of arrival: ambulatory Limitations: no limitations - History of Present Illness Initial comments: 75-year-old male presents emergency Department chief complaint unable to u rinate. Patient had call her surgeon yesterday. Patient states she's not been able to urinate today states is multiple very dry states he does have a history of enlarged prostate. Denies fever or chills no abdominal went otherwise. - Related Data Home Medications Medication Instructions Recorded Confirmed Atorvastatin [Lipitor] 40 mg PO QAM 08/20/18 01/21/21 Bisoprolol-Hctz 2.5-6.25 mg [Ziac 1 tab PO QAM 08/20/18 01/21/21 2.5-6.25 MG] Previous Rx's Medication Instructions Recorded Acetaminophen Tab [Tylenol] 650 mg PO Q6H #30 tab 01/23/21 Docusate [Colace] 100 mg PO BID #20 capsule 01/23/21 Ibuprofen [Motrin] 600 mg PO Q6HR PRN #40 tab 01/23/21 oxyCODONE HCL [OxyIR] 5 mg PO Q6H PRN 3 Days #10 tab 01/23/21 Allergies Allergy/AdvReac Type Severity Reaction Status Date / Time No Known Allergies Allergy Verified 01/24/21 10:10 Review of Systems ROS Statement: Those systems with pertinent positive or pertinent negative responses have been documented in the HPI. ROS Other: All systems not noted in ROS Statement are negative. Past Medical History Past Medical History: GERD/Reflux, Hearing Disorder / Deafness, Hyperlipidemia, Hypertension, Myocardial Infarction ([place]), Sleep Apnea/CPAP/BIPAP Additional Past Medical History / Comment(s): Hx H Pylori, hx kidney infection with hospitalization, no CPAP use. Bilateral hearing aid use. Last Myocardial Infarction Date:: unknown-found on EKG History of Any Multi-Drug Resistant Organisms: None Reported Past Surgical History: Cholecystectomy, Heart Catheterization, Joint Replacement, Orthopedic Surgery Additional Past Surgical History / Comment(s): Total right hip arthroplasty, multiple left hand surgeries-fingers amputated in work accident, left ankle surgery, cervical fusion, left shoulder spurs removed, left arm fatty tumor removed, EGD, colonoscopies, bilateral blepharoplasties(eyelid surgery), bilateral cataract remaval with lens implants. Past Anesthesia/Blood Transfusion Reactions: No Reported Reaction Past Psychological History: No Psychological Hx Reported Smoking Status: Former smoker Past Alcohol Use History: None Reported Past Drug Use History: None Reported - Past Family History Mother Family Medical History: Cancer Sister(s) Family Medical History: Cancer Father Family Medical History: Asthma, Renal Disease Additional Family Medical History / Comment(s): Father at the age of 93 yrs from renal failure. He had multiple hernias. Brother(s) Family Medical History: Coronary Artery Disease (CAD) General Exam Limitations: no limitations General appearance: alert, in no apparent distress Head exam: Present: atraumatic, normocephalic, normal inspection Respiratory exam: Present: normal lung sounds bilaterally. Absent: respiratory distress, wheezes, rales, rhonchi, stridor Cardiovascular Exam: Present: regular rate, normal rhythm, normal heart sounds. Absent: systolic murmur, diastolic murmur, rubs, gallop, clicks GI/Abdominal exam: Present: soft, distended (Lower), tenderness, normal bowel sounds. Absent: guarding, rebound, rigid Course Vital Signs 01/24/21 10:06 Temperature 97.8 F Pulse Rate 77 Respiratory 18 Rate Blood Pressure 170/77 O2 Sat by Pulse 95 Oximetry Medical Decision Making - Medical Decision Making Patient urinary retention related to sedation most likely anticholinergics. Patient has slight catheter placed states he feels 100% better be discharged in stable condition for catheter alert left in place and follow-up with urology. Disposition Clinical Impression: Urinary retention Disposition: HOME SELF-CARE Condition: Stable Instructions (If sedation given, give patient instructions): Urinary Retention in Men (ED) Additional Instructions: Please return to the Emergency Department if symptoms worsen or any other concerns. Is patient prescribed a controlled substance at d/c from ED?: No Referrals: Marquis Alejandro MD [Primary Care Provider] - 1-2 days Maynor Castle MD [STAFF PHYSICIAN] - 1-2 days Time of Disposition: 10:56
== END 2021-01-24 11:46 | disposition home or self-care (01) ==
LOC: EC 09:54
DX: R33.9 Retention of urine, unspecified (principal); K21.9 Gastro-esophageal reflux disease without esophagitis; E78.5 Hyperlipidemia, unspecified; I10 Essential (primary) hypertension; I25.2 Old myocardial infarction; G47.33 Obstructive sleep apnea (adult) (pediatric); Z99.81 Dependence on supplemental oxygen; Z90.49 Acquired absence of other specified parts of digestive tract; Z95.5 Presence of coronary angioplasty implant and graft; Z87.891 Personal history of nicotine dependence
CPT/HCPCS: 99283